=== PATIENT | male | born 1960 | race Caucasian/White ===

== ENCOUNTER 2019-07-08 12:57 | Emergency (ER) | payer MEDICAID ==
[2019-07-08 13:50] LABS: BASOPHILS % (AUTO) 0.3 %; EOSINOPHILS # (AUTO) 0.1 10^3/uL (0.0-0.7); EOSINOPHILS % (AUTO) 0.8 %; HGB - HEMOGLOBIN 16.8 g/dL (14.0-18.0); LYMPHOCYTES # (AUTO) 0.7 10^3/uL (1.5-3.5); LYMPHOCYTES % (AUTO) 11.3 %; MEAN CORPUSCULAR HEMOGLOBIN 32.5 pg (27.0-31.0); MEAN CORPUSCULAR HGB CONC 34.1 g/dL (32.0-36.0); MEAN CORPUSCULAR VOLUME 95.4 fL (80.0-94.0); MEAN PLATELET VOLUME 10.2 fL (7.4-11.4); MONOCYTES # (AUTO) 0.7 10^3/uL (0.0-1.0); MONOCYTES % (AUTO) 11.3 %; NEUTROPHILS # (AUTO) 4.8 10^3/uL (1.5-6.6); NEUTROPHILS % (AUTO) 75.8 %; PLT - PLATELET COUNT 179 10^3/uL (130-450); RED BLOOD COUNT 5.17 10^6/uL (4.70-6.10); RED CELL DISTRIBUTION WIDTH 12.9 % (12.0-15.0); WHITE BLOOD COUNT 6.4 x10^3/uL (4.8-10.8)
[2019-07-08] MEDS ORDERED: SODIUM CHLORIDE 0.9% 1,000 ML IV ONE ×3 (13:59→14:08)
[2019-07-08 14:07] LABS: ALBUMIN/GLOBULIN RATIO 1.1 (1.0-2.2); BILIRUBIN,TOTAL 2.7 mg/dL (0.2-1.0); CALCIUM 9.4 mg/dL (8.5-10.3); CREATININE 0.7 mg/dL (0.6-1.2); TOTAL PROTEIN 7.6 g/dL (6.7-8.2)
[2019-07-08] MEDS ORDERED: ONDANSETRON 4 MG/2 ML VIAL IVP STA (14:08)
[2019-07-08] MEDS ORDERED: KETOROLAC 30 MG/ML VIAL IVP STA (14:08)
--- NOTE | 2019-07-08 14:16 | ED Physician Documentation ---
History of Present Illness - Stated complaint Stated Complaint: ABD PX - Chief complaint Chief Complaint: Abd Pain - History obtained from History obtained from: Patient, Family - History of Present Illness Timing: How many days ago (2-3) Pain level max: 0 Pain level now: 0 - Additonal information Additional information: 59-year-old male states that for the past 2 to 3 days he has "not felt well". He states that his abdomen has been hurting. No nausea or vomiting. noticed that his urine has been dark. He feels lightheaded with standing. States he uses marijuana occasionally. Drinks 5-6 beers per day. Quit smoking a few months ago. No fevers. No diarrhea or constipation. Nothing makes it better or worse. Review of Systems Ten Systems: 10 systems reviewed and negative Constitutional: denies: Fever, Chills Respiratory: denies: Cough GI: denies: Nausea, Vomiting, Diarrhea : denies: Dysuria, Frequency, Hesitancy Skin: denies: Rash Musculoskeletal: denies: Neck pain, Back pain Neurologic: denies: Headache PD PAST MEDICAL HISTORY - Past Medical History Cardiovascular: None Respiratory: None Endocrine/Autoimmune: None GI: Other : None HEENT: None Psych: Anxiety, Panic attacks Musculoskeletal: Other Derm: Psoriasis - Past Surgical History Past Surgical History: Yes General: Other HEENT: Tonsil/Adenoidectomy, Other - Present Medications Home Medications: Ambulatory Orders Medication Instructions Recorded Confirmed HYDROcod/ACETAM 5/325 [Vicodin 1 - 2 ea PO Q6H PRN #15 tablet 10/19/13 10/19/15 5/325] Ibuprofen [Motrin] 600 mg ORAL DAILY PRN 10/19/13 10/19/15 diazePAM [Valium] 5 mg PO TID PRN #20 tablet 10/19/13 10/19/15 Cyclobenzaprine [Flexeril] 10 mg PO DAILY PRN 10/02/15 10/19/15 Aspirin 3 PRN 10/19/15 10/19/15 - Allergies Allergies/Adverse Reactions: Allergies Allergy/AdvReac Type Severity Reaction Status Date / Time venom-honey bee Allergy Edema Verified 10/19/15 08:11 [bee venom (honey bee)] codeine AdvReac Severe stomach Verified 10/19/13 17:03 ache - Social History Does the pt smoke?: Yes Smoking Status: Current every day smoker Does the pt drink ETOH?: Yes Does the pt have substance abuse?: No - Immunizations Immunizations are current?: No Immunizations: TDAP >10years/unknown, Other immun not current PD ED PE NORMAL - Vitals Vital signs reviewed: Yes - General General: Alert and oriented X 3, No acute distress, Well developed/nourished - HEENT HEENT: PERRL, Other (dry lips) - Neck Neck: Supple, no meningeal sign - Cardiac Cardiac: RRR, Strong equal pulses - Respiratory Respiratory: No respiratory distress, Clear bilaterally - Abdomen Abdomen: Soft, Non distended, Other (mild RUQ TTP) - Derm Derm: Warm and dry, No rash - Extremities Extremities: No edema - Neuro Neuro: Alert and oriented X 3 - Psych Psych: Normal mood, Normal affect Results - Vitals Vitals: Vital Signs - 24 hr 07/08/19 07/08/19 07/08/19 13:06 16:03 16:17 Temperature 37.0 C Heart Rate 117 H 93 96 Respiratory 18 18 18 Rate Blood Pressure 119/87 H 121/87 H 126/85 H O2 Saturation 99 97 98 07/08/19 07/08/19 19:18 21:15 Temperature Heart Rate 99 94 Respiratory 16 16 Rate Blood Pressure 154/94 H 127/92 H O2 Saturation 96 96 Oxygen O2 Source Room air - Labs Labs: Laboratory Tests 07/08/19 07/08/19 07/08/19 13:25 13:36 13:36 WBC 6.4 RBC 5.17 Hgb 16.8 Hct 49.3 MCV 95.4 H MCH 32.5 H MCHC 34.1 RDW 12.9 Plt Count 179 MPV 10.2 Neut # (Auto) 4.8 Lymph # (Auto) 0.7 L [place] # (Auto) 0.7 Eos # (Auto) 0.1 Baso # (Auto) 0.0 Absolute Nucleated RBC 0.00 Nucleated RBC % 0.0 Sodium 136 Potassium 3.9 Chloride 98 L Carbon Dioxide 24 Anion Gap 14.0 H BUN 20 Creatinine 0.7 Estimated GFR (MDRD) 115 Glucose 130 H Calcium 9.4 Total Bilirubin 2.7 H AST 152 H ALT 502 H Alkaline Phosphatase 114 Total Protein 7.6 Albumin 4.0 Globulin 3.6 Albumin/Globulin Ratio 1.1 Lipase 20 L Urine Color DARK YELLOW Urine Clarity CLEAR Urine pH 6.5 Ur Specific [place] 1.025 Urine Protein TRACE Urine Glucose (UA) NEGATIVE Urine Ketones >=80 H Urine Occult Blood NEGATIVE Urine Nitrite NEGATIVE Urine Bilirubin MODERATE H Urine Urobilinogen 1 (NORMAL) Ur Leukocyte Esterase NEGATIVE Ur Microscopic Review NOT INDICATED Urine Culture Comments NOT INDICATED - Rads (name of study) RUQ US Radiology: Prelim report reviewed, EMP read contemporaneously, See rad report (1. Fatty infiltrated mildly enlarged liver. 2. Small gallbladder polyp. 3. Mild common bile duct dilatation. ) MRCP Radiology: Prelim report reviewed, EMP read contemporaneously, See rad report (1. Small cholelithiasis. 2. Borderline dilated common duct measuring 7-8 mm with tapering and focal narrowing at the distal aspect. Distal common bile duct stricture not excluded. Small filling defect seen in the distal common bile duct, axial image 13 series 801, could represent a choledocholithiasis measuring 3 mm versus artifact. 3. Fatty liver. Portacaval lymphadenopathy measuring 1.4 cm, could be reactive to liver disease, but etiology not certain. 4. Otherwise, see above. ) PD MEDICAL DECISION MAKING - ED course Complexity details: reviewed results, re-evaluated patient, considered differential, d/w patient, d/w family, d/w product safety consultant ED course: 59-year-old male with what appears to be choledocholithiasis complicated by a bile duct stricture. He is well-appearing, nontoxic. Pain well controlled. Feels better with IV fluids and pain medication. GI is not available here. Ultrasound was concerning for common bile duct stone, but needed MRCP to confirm so we know if we could keep the patient here or if he needs to be transferred. Therefore the MRCP was undertaken. Discussed the case with Dr. Head, GI at [facility] who graciously accepts in transfer. Also discussed with Dr. Rodriguez, hospitalist at [facility] who accepts. COBRA forms completed. Patient transferred This document was made in part using voice recognition software. While efforts are made to proofread this document, sound alike and grammatical errors may occur. Departure - Departure Disposition: 02 Transfer Acute Care Hosp Clinical Impression: Choledocholithiasis, Transaminitis Condition: Stable
[2019-07-08 14:29] LABS: GLUCOSE, URINE (UA) NEGATIVE (NEGATIVE); KETONES,URINE (UA) >=80 mg/dL (NEGATIVE); LEUKOCYTE ESTERASE, URINE NEGATIVE (NEGATIVE); NITRITE,URINE NEGATIVE (NEGATIVE); OCCULT BLOOD,URINE NEGATIVE (NEGATIVE); PH,URINE 6.5 PH (5.0-7.5); PROTEIN,URINE TRACE mg/dL (NEGATIVE); UROBILINOGEN,URINE 1 (NORMAL) E.U./dL (NORMAL)
[2019-07-08 14:37] LABS: BILIRUBIN,URINE MODERATE (NEGATIVE); CLARITY,URINE CLEAR (CLEAR); ICTOTEST,URINE POSITIVE
--- NOTE | 2019-07-08 15:37 | Ultrasound Report ---
Reason: RUQ abd pain, nausea Procedure Date: 07/08/2019 Accession Number: [id number] / [id number] Procedure: US - Abdomen Limited CPT Code: FULL RESULT: EXAM: ABDOMEN ULTRASOUND LIMITED, RUQ EXAM DATE: 07/08/2019 03:25 PM. CLINICAL HISTORY: RUQ abd pain, nausea. COMPARISON: None. TECHNIQUE: Real-time scanning was performed with static images obtained. FINDINGS: Liver: Enlarged, echogenic, heterogeneous 19.5 cm. Main portal vein flow: Hepatopetal. Gallbladder: 4 mm polyp. No stones, wall thickening, or sonographic Friedman's sign. Biliary System: CBD measures 8 mm. Mildly dilated Right kidney 13.8 cm. Unremarkable IMPRESSION: 1. Fatty infiltrated mildly enlarged liver. 2. Small gallbladder polyp. 3. Mild common bile duct dilatation. RADIA
[2019-07-08] MEDS ORDERED: GADOBUTROL 15 MMOL/15 ML VIAL ONE (16:39)
[2019-07-08] MEDS ORDERED: LORazepam 2 MG/ML VIAL IVP STA (17:07)
[2019-07-08] MEDS ORDERED: MORPHINE 2 MG/ML CARPUJECT IVP STA (19:41)
--- NOTE | 2019-07-08 19:42 | MRI Report ---
Reason: dilated CBD, elevated LFTs Procedure Date: 07/08/2019 Accession Number: [id number] / [id number] Procedure: MRI - MRCP W/WO CPT Code: FULL RESULT: EXAM: MR ABDOMEN WITH AND WITHOUT CONTRAST EXAM DATE: 07/08/2019 06:50 PM. CLINICAL HISTORY: Dilated common bile duct, elevated LFTs. Question of stone. COMPARISON: ABDOMEN LIMITED 07/08/2019 2:44 PM. TECHNIQUE: Multiplanar breath-hold T1, T2 sequences obtained through the abdomen on an MR scanner. Images obtained before and after administration of 15 mL Gadavist intravenous contrast. FINDINGS: Liver: Mild fatty liver. Tiny probable liver cyst seen laterally in the right hepatic lobe. Gallbladder: Small gallstones. Common duct: Borderline dilated common duct measuring 7-8 mm with tapering and focal narrowing at the distal aspect. Distal common bile duct stricture not excluded. Small filling defect seen in the distal common bile duct, axial image 13 series 801, could represent a choledocholithiasis measuring 3 mm versus artifact. Portacaval lymphadenopathy measuring 1.4 cm. Pancreas: Unremarkable. Spleen: Unremarkable. Adrenals: Unremarkable. Kidneys: Multiple small bilateral renal cysts and parapelvic renal cysts. No hydronephrosis. Bowel: Unremarkable. IMPRESSION: 1. Small cholelithiasis. 2. Borderline dilated common duct measuring 7-8 mm with tapering and focal narrowing at the distal aspect. Distal common bile duct stricture not excluded. Small filling defect seen in the distal common bile duct, axial image 13 series 801, could represent a choledocholithiasis measuring 3 mm versus artifact. 3. Fatty liver. Portacaval lymphadenopathy measuring 1.4 cm, could be reactive to liver disease, but etiology not certain. 4. Otherwise, see above. RADIA
[2019-07-08 23:56] VITALS: BP 163/97
== END 2019-07-08 23:58 | disposition short-term general hospital (02) ==
LOC: ED 12:57
DX: K80.51 Calculus of bile duct without cholangitis or cholecystitis with obstruction (principal); K76.0 Fatty (change of) liver, not elsewhere classified; R74.0 Nonspecific elevation of levels of transaminase and lactic acid dehydrogenase [LDH]; Z87.891 Personal history of nicotine dependence
CPT/HCPCS: 36415; 74183; 76705; 80053; 81003; 83690; 85025; 96361; 96374; 96375; 99283; 99285; A9585; J2060; 81001; 87086

== ENCOUNTER 2021-03-12 08:00 | Outpatient (CLI) | payer MEDICAID ==
--- NOTE | 2021-03-12 13:49 | XRAY Report ---
PROCEDURE: Chest 2 View X-Ray INDICATIONS: COUGH TECHNIQUE: 2 view(s) of the chest. COMPARISON: None. FINDINGS: Surgical changes and devices: None. Lungs and pleura: No pleural effusions or pneumothorax. Increased bronchovascular markings in bilate ral hilar region are seen with mild bronchial wall thickening. No focal infiltrate. Mediastinum: Mediastinal contours are normal. Heart size is normal. Bones and chest wall: No suspicious bony abnormalities. Soft tissues appear unremarkable. IMPRESSION: Suggestion of mild reactive airway disease such as bronchitis or viral illness. No focal infiltrate. Reviewed by: Juan Velazco MD on 03/12/2021 1:48 PM PDT Approved by: Juan Velazco MD on 03/12/2021 1:48 PM PDT Station ID: [id number]
== END 2021-03-12 23:59 | disposition home or self-care (01) ==
LOC: DI.S 08:00
PROVIDERS: ATTEND Physician Assistant
DX: R05 Cough (principal)

== ENCOUNTER 2021-03-12 08:00 | Outpatient (CLI) | payer MEDICAID | END 2021-03-12 23:59 | disposition home or self-care (01) | LOC: LAB.S 08:00 | PROVIDERS: ATTEND Physician Assistant | DX: R05 Cough (principal); Z20.822 Contact with and (suspected) exposure to COVID-19 ==

== ENCOUNTER 2021-04-09 11:39 | Observation (INO) | payer MEDICAID ==
--- NOTE | 2021-04-09 12:26 | ED Physician Documentation ---
History of Present Illness - Stated complaint Stated Complaint: SOA/HEADACHE - Chief complaint Chief Complaint: Resp - Additonal information Additional information: 61-year-old male presents to the emergency department for evaluation of cough that began about 3 months ago as well as progressive shortness of air. This gentleman reports that when the cough began he did go to a local urgent care where he was told that he had wet lungs and needed to be admitted however he did not go to the hospital. He was started on a course of antibiotics. Over the last 3 months he has taken now a total of 3 courses of antibiotics the most recent one doxycycline begun on 04 April with no improvement of symptoms. He reports productive cough worse at night when flat. he feels better when he brings up phlegm. He does have some associated orthopnea. He has not been vaccinated for COVID-19 but tested negative about 1 month ago. No fevers, no weight loss or night sweats. He is a former smoker quitting about 5 months ago, but stated he only smokem "1 or 2 black or whites a day." Denies any history of COPD, asthma, coronary artery disease. He denies chest pain. No abdominal pain, vomiting, diarrhea, dysuria, leg swelling. His significant other in attendance in the room is concerned because she finds that he is increasingly short of breath with simple activities and she hears him at night and feels that he is breathing excessively fast and shallow. Review of Systems Constitutional: denies: Fever, Chills, Myalgias, Fatigue, Weight Loss, Sweats Eyes: reports: Reviewed and negative Nose: reports: Reviewed and negative Throat: reports: Reviewed and negative Cardiac: denies: Chest pain / pressure, Palpitations Respiratory: reports: Dyspnea, Cough. denies: Hemoptysis, Wheezing GI: denies: Abdominal Pain, Nausea, Vomiting, Diarrhea : denies: Dysuria, Frequency, Hesitancy Skin: reports: Reviewed and negative Musculoskeletal: reports: Reviewed and negative Neurologic: denies: Generalized weakness, Focal weakness, Numbness Psychiatric: denies: Depressed, Suicidal Endocrine: denies: Polydypsia, Polyuria PD PAST MEDICAL HISTORY - Past Medical History Cardiovascular: None Respiratory: None Endocrine/Autoimmune: None GI: Other : None HEENT: None Psych: Anxiety, Panic attacks Musculoskeletal: Other Derm: Psoriasis - Past Surgical History Past Surgical History: Yes General: Other HEENT: Tonsil/Adenoidectomy, Other - Present Medications Home Medications: Ambulatory Orders Medication Instructions Recorded Confirmed diazePAM [Valium] 5 mg PO TID PRN #20 tablet 10/19/13 04/09/21 - Allergies Allergies/Adverse Reactions: Allergies Allergy/AdvReac Type Severity Reaction Status Date / Time venom-honey bee Allergy Edema Verified 04/09/21 12:09 [bee venom (honey bee)] codeine AdvReac Severe stomach Verified 04/09/21 12:09 ache - Social History Does the pt smoke?: Yes Smoking Status: Current every day smoker Does the pt drink ETOH?: Yes Does the pt have substance abuse?: No - Immunizations Immunizations are current?: No Immunizations: TDAP >10years/unknown, Other immun not current PD ED PE EXPANDED - General General: Alert, No acute distress - Neck Neck: Supple w/out meningeal sx. No: Adenopathy - Cardiac Cardiac: Regular Rate, Radial strong equal, Cap refill < 2 sec. No: Murmur Present - Respiratory Respiratory: Clear to ausultation nancy, Other (mild tachypnea and shallow respiration; sat 88% room air. RR 24). No: Labored - Abdomen Abdomen: Normal Bowel sounds. No: Tender to palpation - Derm Derm: Normal color, Warm and dry. No: Rash - Extremities Extremities: Normal. No: Deformity, Tenderness, Pedal edema bilateral - Neuro Neuro: Alert and Oriented X 3, CNII-XII intact. No: Confused, Disoriented - GCS Eye Opening: Spontaneous Motor: Obeys Commands Verbal: Oriented Total: 15 Results - Vitals Vitals: Vital Signs - 24 hr 04/09/21 11:58 Temperature 36.9 C Heart Rate 82 Respiratory 18 Rate Blood Pressure 163/107 H O2 Saturation 90 L Oxygen O2 Source Room air Oxygen Flow Rate 2 - EKG (time done) 1223 Rate: Rate (enter#) (72) Rhythm: NSR [place]: Normal Intervals: Normal NC QRS: Normal Ischemia: Normal ST segments Compare to prior EKG: Old EKG unavailable Computer interpretation: Agree with computer - Labs Labs: Laboratory Tests 04/09/21 04/09/21 04/09/21 12:24 12:24 12:38 WBC 8.2 RBC 5.63 Hgb 17.3 Hct 53.1 H MCV 94.3 H MCH 30.7 MCHC 32.6 RDW 13.1 Plt Count 194 MPV 10.2 Neut # (Auto) 5.5 Lymph # (Auto) 1.3 L [place] # (Auto) 1.0 Eos # (Auto) 0.4 Baso # (Auto) 0.1 Absolute Nucleated RBC 0.00 Nucleated RBC % 0.0 Sodium Potassium Chloride Carbon Dioxide Anion Gap BUN Creatinine Estimated GFR (MDRD) Glucose Calcium Total Bilirubin AST ALT Alkaline Phosphatase Troponin I High Sens B-Natriuretic Peptide Total Protein Albumin Globulin Albumin/Globulin Ratio Lipase Urine Color YELLOW Urine Clarity CLEAR Urine pH 6.5 Ur Specific [place] 1.015 Urine Protein NEGATIVE Urine Glucose (UA) NEGATIVE Urine Ketones 15 H Urine Occult Blood NEGATIVE Urine Nitrite NEGATIVE Urine Bilirubin NEGATIVE Urine Urobilinogen 0.2 (NORMAL) Ur Leukocyte Esterase NEGATIVE Ur Microscopic Review NOT INDICATED Nasal Adenovirus (PCR) NOT DETECTED Nasal B. parapertussis DNA (PCR) NOT DETECTED Nasal Coronavir 229E PCR NOT DETECTED Nasal Coronavir HKU1 PCR NOT DETECTED Nasal Coronavir NL63 PCR NOT DETECTED Nasal Coronavir OC43 PCR NOT DETECTED Nasal Enterovir/Rhinovir PCR NOT DETECTED Nasal Influenza B PCR NOT DETECTED Nasal Influenza A PCR NOT DETECTED Nasal Parainfluen 1 PCR NOT DETECTED Nasal Parainfluen 2 PCR NOT DETECTED Nasal Parainfluen 3 PCR NOT DETECTED Nasal Parainfluen 4 PCR NOT DETECTED Nasal RSV (PCR) NOT DETECTED Nasal B.pertussis DNA PCR NOT DETECTED Nasal C.pneumoniae (PCR) NOT DETECTED David Human Metapneumo PCR NOT DETECTED Nasal M.pneumoniae (PCR) NOT DETECTED Nasal SARS-CoV-2 (PCR) NOT DETECTED 04/09/21 04/09/21 04/09/21 12:38 12:38 12:38 WBC RBC Hgb Hct MCV MCH MCHC RDW Plt Count MPV Neut # (Auto) Lymph # (Auto) [place] # (Auto) Eos # (Auto) Baso # (Auto) Absolute Nucleated RBC Nucleated RBC % Sodium 139 Potassium 4.5 Chloride 98 L Carbon Dioxide 32 Anion Gap 9.0 BUN 8 Creatinine 0.7 Estimated GFR (MDRD) 115 Glucose 135 H Calcium 9.5 Total Bilirubin 0.8 AST 23 ALT 24 Alkaline Phosphatase 61 Troponin I High Sens 4.7 B-Natriuretic Peptide 61 Total Protein 7.8 Albumin 4.4 Globulin 3.4 Albumin/Globulin Ratio 1.3 Lipase 28 Urine Color Urine Clarity Urine pH Ur Specific [place] Urine Protein Urine Glucose (UA) Urine Ketones Urine Occult Blood Urine Nitrite Urine Bilirubin Urine Urobilinogen Ur Leukocyte Esterase Ur Microscopic Review Nasal Adenovirus (PCR) Nasal B. parapertussis DNA (PCR) Nasal Coronavir 229E PCR Nasal Coronavir HKU1 PCR Nasal Coronavir NL63 PCR Nasal Coronavir OC43 PCR Nasal Enterovir/Rhinovir PCR Nasal Influenza B PCR Nasal Influenza A PCR Nasal Parainfluen 1 PCR Nasal Parainfluen 2 PCR Nasal Parainfluen 3 PCR Nasal Parainfluen 4 PCR Nasal RSV (PCR) Nasal B.pertussis DNA PCR Nasal C.pneumoniae (PCR) David Human Metapneumo PCR Nasal M.pneumoniae (PCR) Nasal SARS-CoV-2 (PCR) - Rads (name of study) CXR Radiology: Final report received (no acute cardiopulmonary process) PD MEDICAL DECISION MAKING - ED course Complexity details: reviewed results, re-evaluated patient, d/w patient, d/w family ED course: 61-year-old male presents emergency department for evaluation of 3 months productive cough with increasing shortness of air. On presentation to the ER he is noted to be mildly hypoxic with saturations of 87 to 90% on room air. This improved to 9394% when placed on 2 L nasal cannula. He has been on 3 different courses of antibiotics most recently doxycycline which was started on the eighth. He is a former smoker quit 5 months ago. Chest x-ray does not reveal pneumonia pleural effusion. His cardiopulmonary exam was fairly unrevealing despite the hypoxia. Screening EKG is nonischemic. His labs do show fairly elevated hematocrit which I suspect is related to the chronic smoking but his troponin and BNP are negative. Clinically he does not present in congestive heart failure. I have low suspicion for a PE given duration of symptoms for 3 months. I have spoken with Dr. Wilson our daytime hospitalist. We will bring this patient in for an observation admit for further treatment of bronchitis and hypoxia. Further testing to be dictated by the admitting team but may include walking saturations, echocardiogram or CT of the chest. I discussed the plan with the patient and his and they are in agreement. Departure - Departure Disposition: ED Place in Observation Clinical Impression: Hypoxia, Bronchitis
[2021-04-09 12:47] LABS: BASOPHILS # (AUTO) 0.1 10^3/uL (0.0-0.1); BASOPHILS % (AUTO) 0.7 %; EOSINOPHILS # (AUTO) 0.4 10^3/uL (0.0-0.7); EOSINOPHILS % (AUTO) 4.5 %; HCT - HEMATOCRIT 53.1 % (42.0-52.0); HGB - HEMOGLOBIN 17.3 g/dL (14.0-18.0); LYMPHOCYTES # (AUTO) 1.3 10^3/uL (1.5-3.5); LYMPHOCYTES % (AUTO) 15.8 %; MEAN CORPUSCULAR HEMOGLOBIN 30.7 pg (27.0-31.0); MEAN CORPUSCULAR HGB CONC 32.6 g/dL (32.0-36.0); MEAN CORPUSCULAR VOLUME 94.3 fL (80.0-94.0); MEAN PLATELET VOLUME 10.2 fL (7.4-11.4); MONOCYTES % (AUTO) 11.7 %; NEUTROPHILS # (AUTO) 5.5 10^3/uL (1.5-6.6); NEUTROPHILS % (AUTO) 67.1 %; PLT - PLATELET COUNT 194 10^3/uL (130-450); RED BLOOD COUNT 5.63 10^6/uL (4.70-6.10); RED CELL DISTRIBUTION WIDTH 13.1 % (12.0-15.0); WHITE BLOOD COUNT 8.2 x10^3/uL (4.8-10.8)
[2021-04-09 12:50] LABS: BILIRUBIN,URINE NEGATIVE (NEGATIVE); GLUCOSE, URINE (UA) NEGATIVE (NEGATIVE); KETONES,URINE (UA) 15 mg/dL (NEGATIVE); LEUKOCYTE ESTERASE, URINE NEGATIVE (NEGATIVE); NITRITE,URINE NEGATIVE (NEGATIVE); OCCULT BLOOD,URINE NEGATIVE (NEGATIVE); PH,URINE 6.5 PH (5.0-7.5); PROTEIN,URINE NEGATIVE (NEGATIVE); UROBILINOGEN,URINE 0.2 (NORMAL) E.U./dL (NORMAL)
--- NOTE | 2021-04-09 12:51 | XRAY Report ---
PROCEDURE: Chest 1 View X-Ray INDICATIONS: Chest Pain TECHNIQUE: One view of the chest was acquired. COMPARISON: 03/12/2021 FINDINGS: Surgical changes and devices: None. Lungs and pleura: No pleural effusions or pneumothorax. Lungs are clear. Mediastinum: Mediastinal contours appear normal. Heart size is normal. Bones and chest wall: No suspicious bony lesions. Overlying soft tissues appear unremarkable. IMPRESSION: No acute cardiopulmonary process. Reviewed by: Juan Velazco MD on 04/09/2021 12:50 PM PDT Approved by: Juan Velazco MD on 04/09/2021 12:50 PM PDT Station ID: [id number]
[2021-04-09 12:52] LABS: CLARITY,URINE CLEAR (CLEAR)
[2021-04-09 13:10] LABS: ALBUMIN 4.4 g/dL (3.2-5.5); ALBUMIN/GLOBULIN RATIO 1.3 (1.0-2.2); BILIRUBIN,TOTAL 0.8 mg/dL (0.2-1.0); CALCIUM 9.5 mg/dL (8.5-10.3); CREATININE 0.7 mg/dL (0.6-1.2); POTASSIUM 4.5 mmol/L (3.5-5.0); TOTAL PROTEIN 7.8 g/dL (6.7-8.2)
[2021-04-09 13:36] LABS: B. PARAPERTUSSIS- RESP PCR PAN NOT DETECTED; B. PERTUSSIS- RESP PCR PANEL NOT DETECTED; C. PNEUMONIAE- RESP PCR PANEL NOT DETECTED; CORONAVIRUS 229E-RESP PCR NOT DETECTED; CORONAVIRUS HKU1-RESP PCR NOT DETECTED; CORONAVIRUS NL63-RESP PCR NOT DETECTED; CORONAVIRUS OC43-RESP PCR NOT DETECTED; HUMAN METAPNEUMOVIRUS NOT DETECTED; INFLUENZA A- RESP PCR PANEL NOT DETECTED; INFLUENZA B - RESP PCR PANEL NOT DETECTED; M. PNEUMONIAE- RESP PCR PANEL NOT DETECTED; PARAINFLUENZA VIRUS 1 NOT DETECTED; PARAINFLUENZA VIRUS 2 NOT DETECTED; PARAINFLUENZA VIRUS 3 NOT DETECTED; PARAINFLUENZA VIRUS 4 NOT DETECTED; RHINOVIRUS/ENTEROVIRUS NOT DETECTED; RSV- RESP PCR PANEL NOT DETECTED; SARS-CoV-2 -RESP PCR PANEL NOT DETECTED
[2021-04-09] MEDS ORDERED: SODIUM CHLORIDE FLUSH 0.9% 10 ML SYRINGE IVP PRN (13:47)
--- NOTE | 2021-04-09 13:53 | HISTORY & PHYSICAL EXAMINATION ---
Chief Complaint - Chief Complaint Chief Complaint: SOB, cough History of Present Illness - Admitted From Admitted From:: ED - History Obtained From History obtained from: ED provider and the patient - History of Present Illness HPI Comment/Other: This is a 61-year-old white male with an essentially negative past medical history. He quit smoking cigars 5 months ago. The patient has had a "cough for 3 months". He went to the [facility], described achiness and a cough with green sputum, a CXR was done that he reports, showed bilateral pneumonia. He was prescribed a course of antibiotics for 7 days (he cannot remember the antibiotic name) plus several days of steroids and he felt better after a week, but 2 days later he again developed cough with green sputum production and at this time, because of changed health insurance, he was seen by a different doct or at [facility] in [facility]. He was put on Zithromax and again steroids and again felt better after a week, but a few days later the same symptoms recurred and he called the [place] office and was prescribed a third course of antibiotics without steroids; he is currently on his 4th day of doxycycline. Patient came to the ER today with worsening shortness of breath, "unable to catch his breath and take a deep breath", and this annoying persistent cough with green sputum. He takes an inhaler, "1 puff every 3 hours", and does not know the name. He has never seen a Textiles Sales Representative. His work-up in the ER showed an 88% oxygen saturation on room air and he was tachypneic. The chest x-ray showed resolution of any "walking pneumonia". The patient is being placed in Observation status to start treatment for probable chronic bronchitis, possible COPD, and for additional testing to rule out causes for hypoxemia. History - Past Medical History Cardiovascular: reports: None Respiratory: reports: None Endocrine/Autoimmune: reports: None GI: reports: Other : reports: None HEENT: reports: None Psych: reports: Anxiety, Panic attacks Musculoskeletal: reports: Other Derm: reports: Psoriasis MRSA Hx?: No - Past Surgical History General: reports: Other HEENT: reports: Tonsil/Adenoidectomy, Other - Family & Social History Family History: Other family: Alive and Well (3 daughters, 1 is heroine addict & homeless) Living arrangement: At home Living Situation: With spouse/s.o. 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 He was a 2 cigar a day smoker and quit 5 months ago. He drinks alcohol socially. - Substance History Use: Uses substance without health or social issues: NONE - POLST Patient has POLST: No POLST Status: Full Code Meds/Allgy - Home Medications Home Medications: Ambulatory Orders Medication Instructions Recorded Confirmed diazePAM [Valium] 5 mg PO TID PRN #20 tablet 10/19/13 04/09/21 Albuterol Sulf [Ventolin Hfa 2 puffs INH Q6HR PRN 04/09/21 04/09/21 Inhaler] Doxycycline Hyclate [Vibramycin] 100 mg PO BID 04/09/21 04/09/21 - Allergies Allergies/Adverse Reactions: Allergies Allergy/AdvReac Type Severity Reaction Status Date / Time venom-honey bee Allergy Edema Verified 04/09/21 12:09 [bee venom (honey bee)] codeine AdvReac Severe stomach Verified 04/09/21 12:09 ache Review of Systems - Respiratory Respiratory: reports: Cough, Sputum production, Wheezing - All Other Systems All Other Systems: reports: Reviewed and negative Exam - Vital Signs Reviewed Vital Signs: Yes Vital Signs: Vital Signs x48h Temp Pulse Resp BP Pulse Ox 04/09/21 11:58 36.9 C 82 18 163/107 H 90 L - Physical Exam General Appearance: positive: No acute distress, Alert Eyes Bilateral: positive: Normal inspection, EOMI ENT: positive: ENT inspection nml Neck: positive: Nml inspection, Thyroid nml, No JVD Respiratory: positive: No respiratory distress (wearing O2 n.c.), Other (Dim inished breath sounds diffusely, scattered wheezes in the upper lung santos, no rales.) Abdomen: positive: Non-tender, Nml bowel sounds, No distention Skin: positive: Warm, Dry Neurologic/Psychiatric: positive: Oriented x3 (Non-focal) Conclusion/Plan - Problem List (1) Hypoxia Conclusion/Plan: Continue supplemental oxygen and treating the underlying pulmonary pathology (see below). Will try to wean down to room air and then will perform oxygen oximetry walk test before discharge. (2) Bronchitis Conclusion/Plan: This patient reports chronic green sputum production, only made intermittently better when he was on courses of steroids or antibiotics. We will treat for continued bronchitis to help sputum expectoration. We will order Mucinex for expectoration. We will order respiratory sputum culture. We do not know the first antibiotic he took, he completed an adequate course of Zithromax, therefore we will add iv cefepime to po doxycycline. (3) CAP (community acquired pneumonia) Conclusion/Plan: Angiogram of this the chest was done as he was being placed in Observation, to rule out PE, and it showed no PE. The report does find consolidation and groundglass opacity on both sides. This could be an atypical pneumonia, community-acquired or findings of pulmonary fibrosis plus the tail end of the outpatient pneumonia that he has had treatment with antibiotics for. He has therefore failed outpt antibiotic treatment. However, he has no fever or elevated WBC. We will continue continue with his p.o. doxycycline and also add IV cefepime. Will add Mucinex for expectoration and also start inhalers and Singulair for his probable COPD. (4) Heart murmur Conclusion/Plan: Patient states he has known about his heart murmur since childhood and was told he would "outgrow it". The murmur is (still) audible and sounds like mitral or tricuspid regurgitation. We will obtain an Echo to determine if the murmur has perhaps created CHF, which may also be adding to his dyspnea and hypoxia. Will check if he has pulm HTN or Cor pulmonale. Will request this Echo to be done with a bubble study to evaluate for an intracardiac shunt, which could also explain hypoxia. (5) Ex-smoker for less than 1 year Conclusion/Plan: He has scattered wheezing and a prolonged expiratory phase as well as poor air movement in all lung santos, and was a smoker (of Vortal) for all his life unt il 5 mos ago. Will begin DuoNebs 4 times daily scheduled and every 4 hours prn. We will begin Pulmicort scheduled twice daily. We will begin oral Singulair at at bedtime. He will be discharged with a maintenance and rescue inhaler and also steroid inhaler. He needs RT education on proper use of inhalers. (6) Anxiety Conclusion/Plan: We will continue his Valium 5 mg 3 times daily as needed for anxiety, while he is here - Lab Results Fish Bones: 04/09/21 12:38 04/09/21 12:38
[2021-04-09] MEDS ORDERED: IOVERSOL 320 100 ML VIAL IVP ONE ×2 (14:17→20:11)
[2021-04-09] MEDS ORDERED: ALBUTEROL NEB 2.5 MG/3 ML INH PRN (15:57)
--- NOTE | 2021-04-09 16:32 | CT Report ---
PROCEDURE: ANGIO CHEST W/WO INDICATIONS: Hypoxia, tachypnea CONTRAST: IV CONTRAST: Optiray 320 ml: 80 PO CONTRAST: *NO PO CONTRAST TECHNIQUE: After the administration of intravenous contrast, images were acquired from the pulmonary apices to t he posterior costophrenic angles. 3-dimensional maximum intensity projection (MIP) coronal and sagit narinder reformats were then acquired through the thorax. For radiation dose reduction, the following was used: automated exposure control, adjustment of mA and/or kV according to patient size. COMPARISON: Same-day chest radiograph; 03/13/2021 chest radiograph FINDINGS: Image quality: Excellent. Pulmonary arteries: Pulmonary arteries are normal in size, and demonstrate no intraluminal filling d efects to suggest central pulmonary embolism. Lungs and pleura:, Patchy bilateral groundglass and small consolidative nodular opacities. No pleural effusions or pneum othorax. Central and peripheral airways are patent. Mediastinum: Heart size is normal, without pericardial effusion. Shotty mediastinal and hilar lympha denopathy. Thoracic aorta is normal in caliber and enhancement. Esophagus is normal in caliber, with out hiatal hernia. Bones and chest wall: No suspicious bony lesions. Ribs and thoracic spine appear intact throughout. No axillary or supraclavicular adenopathy. The thyroid is normal in size and there are no incident al findings. Abdomen: Visualized upper abdominal solid organs appear normal in the early arterial phase of enhanc ement. IMPRESSION: Bilateral airspace opacities which are both groundglass and small consolidative reticulonodular opaci ties. Findings are most likely infectious or inflammatory. Follow-up to resolution recommended. No evidence of pulmonary embolism. Shotty lymphadenopathy in the mediastinal and hilar stations may be reactive given the suspected infe ctious or inflammatory process. This is not entirely definitive, however, and neoplasm could cause a similar appearance and this will need follow-up to document stability or resolution. CLINICAL RECOMMENDATION STATEMENTS: In patients <35 years with an ITN detected on CT, MRI, or extrathyroidal ultrasound, the Committee re commends further evaluation with dedicated thyroid ultrasound if the nodule is ?1 cm and has no suspi cious imaging features, and if the patient has normal life expectancy. In patients ?35 years with an ITN detected on CT, MRI, or extrathyroidal ultrasound, the Committee re commends further evaluation with dedicated thyroid ultrasound if the nodule is ?1.5 cm and has no bernard picious imaging features, and if the patient has normal life expectancy. (ACR, 2014) Reviewed by: Theo Alejandra MD on 04/09/2021 4:31 PM PDT Approved by: Theo Alejandra MD on 04/09/2021 4:31 PM PDT Station ID: [id number]
[2021-04-09] MEDS: SODIUM CHLORIDE FLUSH 0.9% 10 ML SYRINGE IVP SCH (18:23)
[2021-04-09] MEDS: CEFEPIME 2 GM in SODIUM CHLORIDE 0.9% MINIBAG 100 ML IV SCH (18:23)
[2021-04-09] MEDS ORDERED: IPRATROPIUM/ALBUTEROL 3 ML NEB INH PRN (18:26)
[2021-04-09] MEDS: ACETAMINOPHEN 325 MG TABLET PO PRN (18:31)
[2021-04-09] MEDS: CARBOXYMETHYLCELLULOSE OPHTH DROPS EACHEYE PRN (21:19)
[2021-04-09] MEDS: DOXYCYCLINE 100 MG TABLET PO SCH (21:20)
[2021-04-09] MEDS: MONTELUKAST 10 MG TABLET PO SCH (21:20)
[2021-04-09] MEDS: guaiFENesin 600 MG TABLET PO SCH (21:20)
[2021-04-09] MEDS: BUDESONIDE 0.5 MG/2 ML NEB INH SCH (21:42)
[2021-04-09] MEDS: IPRATROPIUM/ALBUTEROL 3 ML NEB INH SCH (21:42)
[2021-04-09] MEDS: diazePAM 5 MG TABLET PO PRN (22:53)
[2021-04-10] MEDS: SODIUM CHLORIDE FLUSH 0.9% 10 ML SYRINGE IVP SCH ×3 (00:02→17:31)
[2021-04-10] MEDS: ACETAMINOPHEN 325 MG TABLET PO PRN ×4 (00:02→21:45)
[2021-04-10] MEDS: CEFEPIME 2 GM in SODIUM CHLORIDE 0.9% MINIBAG 100 ML IV SCH ×2 (05:30→17:30)
[2021-04-10] MEDS: BUDESONIDE 0.5 MG/2 ML NEB INH SCH ×2 (07:26→21:04)
[2021-04-10] MEDS: IPRATROPIUM/ALBUTEROL 3 ML NEB INH SCH ×4 (07:26→21:06)
[2021-04-10] MEDS: guaiFENesin 600 MG TABLET PO SCH ×2 (08:38→21:45)
[2021-04-10] MEDS: DOXYCYCLINE 100 MG TABLET PO SCH ×2 (08:38→21:45)
[2021-04-10] MEDS ORDERED: BENZOCAINE/MENTHOL LOZENGE MM PRN (11:33)
[2021-04-10] MEDS: diazePAM 5 MG TABLET PO PRN ×3 (11:38→22:51)
[2021-04-10] MEDS: CARBOXYMETHYLCELLULOSE OPHTH DROPS EACHEYE PRN ×3 (12:52→22:51)
--- NOTE | 2021-04-10 18:09 | PROVIDER PROGRESS NOTE ---
Assessment/Plan - Problem List (1) Hypoxia Assessment/Plan: Off oxygen, he underwent oximetry study. At rest he desaturated to 83% on room air, this improved to 88% on 2 L nasal cannula. He then walked on 2 L and this decreased to 86%. Sats improved to 88% on 3 L with activity. Patient is not ready for discharge because of persistent oxygen desaturations. The patient is amenable to a new home oxygen order which will be ordered at discharge (2) Bronchitis with wheezing Assessment/Plan: Expectoration has improved by being on scheduled Mucinex twice daily and treating the underlying persistent pneumonia. Wheezing has improved by starting scheduled nebulizer treatments and as needed additional nebulizer treatments, p.o. Singulair and inhaled corticosteroids. Will continue these. (3) CAP (community acquired pneumonia) Assessment/Plan: Today audible rales are heard at both bases now that no further wheezing and bet ter air movement have been achieved. The chest x-ray at admission had showed no infiltrates but the CT scan did show bilateral groundglass changes plus small bilateral infiltrates. Await sputum culture result which showed high white blood cells and many gram- positive cocci Continue with empiric IV cefepime. Continue p.o. doxycycline. (4) Heart murmur Assessment/Plan: He underwent an echo today which shows mild aortic stenosis. Normal LV and RV function were seen. The information was given to the patient.delivered to the patient. (5) Anxiety Assessment/Plan: His parent Valium has been ordered to use while here. - Current Meds Current Meds: Current Medications Generic Name Dose Route Start Last Admin Trade Name Freq PRN Reason Stop Dose Admin Acetaminophen 650 mg 04/09/21 13:47 04/10/21 17:30 Acetaminophen 325 Mg Tablet PO 650 mg Q4HR PRN Administration Pain 1 to 4 Albuterol/Ipratropium 3 ml 04/09/21 19:00 04/10/21 15:16 Ipratropium/Albuterol 3 Ml Neb INH 3 ml RTQID DARRON Administration Budesonide 0.5 mg 04/09/21 19:00 04/10/21 07:26 Budesonide 0.5 Mg/2 Ml Neb INH 0.5 mg RTBID DARRON Administration Carboxymethylcellulose 1 drops 04/09/21 14:48 04/10/21 12:52 Carboxymethylcellulose Ophth Drops EACHEYE 1 drops PRN PRN Administration Dry Eye Diazepam 5 mg 04/09/21 13:51 04/10/21 17:30 Diazepam 5 Mg Tablet PO 5 mg TID PRN Administration Spasms Doxycycline Hyclate 100 mg 04/09/21 21:00 04/10/21 08:38 Doxycycline 100 Mg Tablet PO 100 mg BID DARRON Administration Guaifenesin 600 mg 04/09/21 21:00 04/10/21 08:38 Guaifenesin 600 Mg Tablet PO 600 mg BID DARRON Administration Cefepime HCl 2 gm/ Sodium 100 mls @ 200 mls/hr 04/09/21 18:00 04/10/21 18:05 Chloride IV Infused Q12H DARRON Infusion Montelukast Sodium 10 mg 04/09/21 21:00 04/09/21 21:20 Montelukast 10 Mg Tablet PO 10 mg QPM DARRON Administration Sodium Chloride 10 ml 04/09/21 13:47 04/10/21 05:30 Sodium Chloride Flush 0.9% 10 Ml Syringe IVP 10 ml PRN PRN Administration NEEDED PER PROVIDER ORDERS Sodium Chloride 10 ml 04/09/21 17:00 04/10/21 17:31 Sodium Chloride Flush 0.9% 10 Ml Syringe IVP 10 ml 0100,0900,1700 DARRON Administration Throat Lozenges 1 lozenge 04/10/21 11:33 04/10/21 11:39 Benzocaine/Menthol Lozenge MM 1 lozenge Q2HR PRN Administration Throat pain - Lab Result Fish Bone Diagrams: 04/09/21 12:38 04/09/21 12:38 - Additional Planning My Orders: My Active Orders 04/09/21 18:00 Cefepime 2 gm Sodium Chloride 0.9% Minibag [Normal Saline 0.9% Minibag] 100 ml IV Q12H 04/09/21 18:26 Nebulizer/MDI Tx. [RC] .QID Ipratropium/Albuterol [Duoneb] 3 ml INH Q4HR PRN 04/09/21 19:00 Budesonide [Pulmicort] 0.5 mg INH RTBID Ipratropium/Albuterol [Duoneb] 3 ml INH RTQID 04/09/21 19:09 CUL, RESPIRATORY [RM] Urgent 04/09/21 21:00 Doxycycline [Vibramycin] 100 mg PO BID Montelukast [Singulair] 10 mg PO QPM guaiFENesin [Mucinex] 600 mg PO BID 04/10/21 08:00 Echo Complete w/Bubble Study [ECHO] Routine 04/10/21 08:34 Oxygen Desat. Study w/Exercise [RC] .ONCE 04/10/21 11:33 Benzocaine/Menthol [Cepacol] 1 lozenge MM Q2HR PRN Subjective - Subjective Patient Reports: Feeling Better (Able to expectorate more easily, and inhale more deeply) Objective Vital Signs: Vital Signs - 24 hr 04/09/21 04/09/21 04/09/21 21:00 21:40 21:41 Temperature 36.8 C 36.6 C Heart Rate 81 82 Heart Rate [ 84 Brachial] Respiratory 18 20 20 Rate Blood Pressure 129/89 H [Right Brachial artery] O2 Saturation 90 L 92 04/10/21 04/10/21 04/10/21 00:00 05:00 07:29 Temperature 36.6 C 36.4 C L Heart Rate 84 Heart Rate [ 81 73 Brachial] Respiratory 20 18 18 Rate Blood Pressure 123/83 H 131/83 H [Right Brachial artery] O2 Saturation 92 93 04/10/21 04/10/21 04/10/21 08:03 11:33 15:17 Temperature 36.6 C 36.6 C Heart Rate 88 Heart Rate [ 83 83 Brachial] Respiratory 19 19 18 Rate Blood Pressure 124/75 126/79 [Right Brachial artery] O2 Saturation 90 L 92 04/10/21 17:00 Temperature 36.7 C Heart Rate Heart Rate [ 87 Brachial] Respiratory 18 Rate Blood Pressure 120/74 [Right Brachial artery] O2 Saturation 92 Oxygen O2 Source Nasal cannula Oxygen Flow Rate 2 I&O (Last 24 Hrs): Intake and Output Totals x24h 04/08/21 04/09/21 04/10/21 23:59 23:59 23:59 Intake Total 550 920 Balance 550 920 General: Alert, Oriented x3 HEENT: Mucous membr. moist/pink Neck: Supple, No JVD Neuro: Alert, Non Focal Cardiovascular: Regular rate, Other (syst murmur) Respiratory: No respiratory distress (on O2 per n.c.), Other (Goos air mvm, no wheezing, bilateral rales at bases.) Abdomen: Soft, No tenderness Extremities: No clubbing, No edema - Results Results: Laboratory Results WBC 8.2 x10^3/uL (4.8-10.8) 04/09/21 12:38 RBC 5.63 10^6/uL (4.70-6.10) 04/09/21 12:38 Hgb 17.3 g/dL (14.0-18.0) 04/09/21 12:38 Hct 53.1 % (42.0-52.0) H 04/09/21 12:38 MCV 94.3 fL (80.0-94.0) H 04/09/21 12:38 MCH 30.7 pg (27.0-31.0) 04/09/21 12:38 MCHC 32.6 g/dL (32.0-36.0) 04/09/21 12:38 RDW 13.1 % (12.0-15.0) 04/09/21 12:38 Plt Count 194 10^3/uL (130-450) 04/09/21 12:38 MPV 10.2 fL (7.4-11.4) 04/09/21 12:38 Neut # (Auto) 5.5 10^3/uL (1.5-6.6) 04/09/21 12:38 Lymph # (Auto) 1.3 10^3/uL (1.5-3.5) L 04/09/21 12:38 [place] # (Auto) 1.0 10^3/uL (0.0-1.0) 04/09/21 12:38 Eos # (Auto) 0.4 10^3/uL (0.0-0.7) 04/09/21 12:38 Baso # (Auto) 0.1 10^3/uL (0.0-0.1) 04/09/21 12:38 Absolute Nucleated RBC 0.00 x10^3/uL 04/09/21 12:38 Nucleated RBC % 0.0 /100WBC 04/09/21 12:38 Sodium 139 mmol/L (135-145) 04/09/21 12:38 Potassium 4.5 mmol/L (3.5-5.0) 04/09/21 12:38 Chloride 98 mmol/L (101-111) L 04/09/21 12:38 Carbon Dioxide 32 mmol/L (21-32) 04/09/21 12:38 Anion Gap 9.0 (6-13) 04/09/21 12:38 BUN 8 mg/dL (6-20) 04/09/21 12:38 Creatinine 0.7 mg/dL (0.6-1.2) 04/09/21 12:38 Estimated GFR (MDRD) 115 (>89) 04/09/21 12:38 Glucose 135 mg/dL (70-100) H 04/09/21 12:38 Calcium 9.5 mg/dL (8.5-10.3) 04/09/21 12:38 Total Bilirubin 0.8 mg/dL (0.2-1.0) 04/09/21 12:38 AST 23 IU/L (10-42) 04/09/21 12:38 ALT 24 IU/L (10-60) 04/09/21 12:38 Alkaline Phosphatase 61 IU/L (42-121) 04/09/21 12:38 Troponin I High Sens 4.7 ng/L (2.3-19.7) 04/09/21 12:38 B-Natriuretic Peptide 61 pg/mL (5-100) 04/09/21 12:38 Total Protein 7.8 g/dL (6.7-8.2) 04/09/21 12:38 Albumin 4.4 g/dL (3.2-5.5) 04/09/21 12:38 Globulin 3.4 g/dL (2.1-4.2) 04/09/21 12:38 Albumin/Globulin Ratio 1.3 (1.0-2.2) 04/09/21 12:38 Lipase 28 U/L (22-51) 04/09/21 12:38 Urine Color YELLOW 04/09/21 12:24 Urine Clarity CLEAR (CLEAR) 04/09/21 12:24 Urine pH 6.5 PH (5.0-7.5) 04/09/21 12:24 Ur Specific [place] 1.015 (1.002-1.030) 04/09/21 12:24 Urine Protein NEGATIVE mg/dL (NEGATIVE) 04/09/21 12:24 Urine Glucose (UA) NEGATIVE mg/dL (NEGATIVE) 04/09/21 12:24 Urine Ketones 15 mg/dL (NEGATIVE) H 04/09/21 12:24 Urine Occult Blood NEGATIVE (NEGATIVE) 04/09/21 12:24 Urine Nitrite NEGATIVE (NEGATIVE) 04/09/21 12:24 Urine Bilirubin NEGATIVE (NEGATIVE) 04/09/21 12:24 Urine Urobilinogen 0.2 (NORMAL) E.U./dL (NORMAL) 04/09/21 12:24 Ur Leukocyte Esterase NEGATIVE (NEGATIVE) 04/09/21 12:24 Ur Microscopic Review NOT INDICATED 04/09/21 12:24 Nasal Adenovirus (PCR) NOT DETECTED 04/09/21 12:24 Nasal B. parapertussis DNA (PCR) NOT DETECTED 04/09/21 12:24 Nasal Coronavir 229E PCR NOT DETECTED 04/09/21 12:24 Nasal Coronavir HKU1 PCR NOT DETECTED 04/09/21 12:24 Nasal Coronavir NL63 PCR NOT DETECTED 04/09/21 12:24 Nasal Coronavir OC43 PCR NOT DETECTED 04/09/21 12:24 Nasal Enterovir/Rhinovir PCR NOT DETECTED 04/09/21 12:24 Nasal Influenza B PCR NOT DETECTED 04/09/21 12:24 Nasal Influenza A PCR NOT DETECTED 04/09/21 12:24 Nasal Parainfluen 1 PCR NOT DETECTED 04/09/21 12:24 Nasal Parainfluen 2 PCR NOT DETECTED 04/09/21 12:24 Nasal Parainfluen 3 PCR NOT DETECTED 04/09/21 12:24 Nasal Parainfluen 4 PCR NOT DETECTED 04/09/21 12:24 Nasal RSV (PCR) NOT DETECTED 04/09/21 12:24 Nasal B.pertussis DNA PCR NOT DETECTED 04/09/21 12:24 Nasal C.pneumoniae (PCR) NOT DETECTED 04/09/21 12:24 David Human Metapneumo PCR NOT DETECTED 04/09/21 12:24 Nasal M.pneumoniae (PCR) NOT DETECTED 04/09/21 12:24 Nasal SARS-CoV-2 (PCR) NOT DETECTED 04/09/21 12:24 - Procedures Procedures: Procedures SUPPLEMENT ABDOMINAL WALL WITH SYNTH SUB, OPEN APPROACH (10/19/15)
[2021-04-10] MEDS: MONTELUKAST 10 MG TABLET PO SCH (21:45)
[2021-04-11] MEDS: SODIUM CHLORIDE FLUSH 0.9% 10 ML SYRINGE IVP SCH ×2 (00:11→09:01)
[2021-04-11] MEDS: CEFEPIME 2 GM in SODIUM CHLORIDE 0.9% MINIBAG 100 ML IV SCH (05:41)
[2021-04-11] MEDS: IPRATROPIUM/ALBUTEROL 3 ML NEB INH SCH (07:49)
[2021-04-11] MEDS: BUDESONIDE 0.5 MG/2 ML NEB INH SCH (07:51)
[2021-04-11] MEDS: ACETAMINOPHEN 325 MG TABLET PO PRN (09:00)
[2021-04-11] MEDS: DOXYCYCLINE 100 MG TABLET PO SCH (09:00)
[2021-04-11] MEDS: diazePAM 5 MG TABLET PO PRN (09:01)
[2021-04-11] MEDS: guaiFENesin 600 MG TABLET PO SCH (09:01)
--- NOTE | 2021-04-11 09:24 | Discharge Plan ---
Discharge Plan Problem Reviewed?: Yes Disposition: Home, Self Care Condition: Stable Prescriptions: Ipratropium/Albuterol [Duoneb] 3 ml INH RTQID #90 neb guaiFENesin [Guaifenesin ER] 600 mg PO BID #14 tab levoFLOXacin [Levofloxacin] 750 mg PO DAILY #3 tablet Albuterol Sulfate [Proair Hfa Inhaler] 1 - 2 puffs INH Q4H PRN #1 gm PRN Reason: Shortness Of Air/Wheezing Budesonide [Pulmicort] 0.5 mg INH RTBID #60 neb Montelukast [Singulair] 10 mg PO QPM #30 tablet diazePAM [Valium] 5 mg PO BID #10 tablet Diet: Regular Activity Restrictions: No Restrictions Shower Restrictions: No Driving Restrictions: No Instruction Topics: Bronchitis Chronic, Inhaler Use, Chronic Lung Disease Stretching Health Concerns: You were in the hospital for IV antibiotic treatment of chronic bronchitis and a persistent pneumonia and we also continued the oral antibiotic, that third course of treatment that had been recently started. We also treated you for chronic bronchitis and emphysema with new medications. You are being discharged to finish antibiotics and with new prescriptions for more aggressive treatment of chronic bronchitis and presumed emphysema. You need to have pulmonary function tests done, that should be ordered by your PCP. A new prescription for several tablets of Valium was also prescribed at your request. All prescriptions were electronically sent to your [facility] in [place]. Plan of Treatment: As above. Also, you were tested for needing oxygen and a new order for home oxygen has been set up. Care Goals: Improvement in symptoms and stabilization are the goals. Assessment: The patient understands and is agreeable with the plan. Additional Instructions or Follow Up instructions: If you have new or worsening symptoms, call your PCP for advice or come to the ER. No Smoking: If you smoke, Please STOP! Call for help. Follow-up with: NURIA MCGARRY [Primary Care Provider] -
--- NOTE | 2021-04-11 10:34 | PHARMACY PROGRESS NOTE ---
- Best Possible Medication History Admit Date and Time: 04/09/21 0055 Processed by: Pharmacy Medication History completed: Yes Patient Interview: Completed Secondary Source(s): Physician records, Pharmacy records, Insurance records As the person ultimately responsible for medication therapy, providers are able to order a medication from an existing home medication list in [facility] via the "Reconcile Routine" prior to Confirmation of that medication by technical support specialist. Such practice is discouraged except when the physician, in their clinical judgment, deems that a medical need exists for a medication without regard to previous use.
--- NOTE | 2021-04-11 11:53 | DISCHARGE SUMMARY ---
Discharge Summary Admit Date: 04/09/21 Discharge Date: 04/11/21 Discharging Provider: Dr Kacie Flaherty Condition at Discharge: Stable Discharge Disposition: 01 Home, Self Care - HPI History of Present Illness: This is a 61-year-old white male with an essentially negative past medical history. He quit smoking cigars 5 months ago. The patient has had a "cough for 3 months". He went to the [facility], described achiness and a cough with green sputum, a CXR was done that he reports, showed bilateral pneumonia. He was prescribed a course of antibiotics for 7 days (he cannot remember the antibiotic name) plus several days of steroids and he felt better after a week, but 2 days later he again developed cough with green sputum production and at this time, because of changed health insurance, he was seen by a different doctor at [facility] in [facility]. He was put on Zithromax and again steroids and again felt better after a week, but a few days later the same symptoms recurred and he called the [place] office and was prescribed a third course of antibiotics without steroids; he is currently on his 4th day of doxycycline. Patient came to the ER today with worsening shortness of breath, "unable to catch his breath and take a deep breath", and this annoying persistent cough with green sputum. He takes an inhaler, "1 puff every 3 hours", and does not know the name. He has never seen a Global Marketing Operations Manager. His work-up in the ER showed an 88% oxygen saturation on room air and he was tachypneic. The chest x-ray showed resolution of any "walking pneumonia". The patient is being placed in Observation status to start treatment for probable chronic bronchitis, possible COPD, and for additional testing to rule out causes for hypoxemia. - HOSPITAL COURSE Hospital Course: (1) Hypoxia He was started on supplemental oxygen and when weaned off oxygen, he had persistent desaturations. On the day of discharge, he underwent an oximetry walk study. At rest, he was hypoxic at 86% on room air. On 2 L/min nasal cannula at rest, his O2 sats improved to 93%. With ambulation on 2 L/min, his O2 sats were 90%. I am ordering home O2, at 2 L/min continuously to treat his COPD/chronic bronchitis and hypoxia. I am also ordering a home nebulizer machine to administer bronchodilators/inhaled steroids. (2) Bronchitis with wheezing Expectoration began by being on scheduled Mucinex twice daily and by treating the underlying pneumonia. Wheezing improved by starting scheduled and prn nebulizer treatments, p.o. Singulair and inhaled corticosteroids. He was discharged on these. (3) CAP (community acquired pneumonia) After the admission exam of being very tight with poor air movement, the next day audible rales were heard at both bases. The chest x-ray at admission had shown no infiltrates but the CT scan did show bilateral groundglass changes plus small bilateral infiltrates. A sputum sample result showed high white blood cells and many gram-positive cocci he was on empiric IV cefepime, then discharged on p.o. doxycycline. (4) Heart murmur He reported knowing about a murmur since childhood. He underwent an Echo here which showed mild aortic stenosis. Normal LV and RV function were seen. The information was given to the patient. (5) Ex-smoker (less than 1 yr) He has not smoked in 5 mos. (6) Anxiety His home Valium dose was ordered to use while here. - ALLERGIES Allergies/Adverse Reactions: Allergies Allergy/AdvReac Type Severity Reaction Status Date / Time venom-honey bee Allergy Edema Verified 04/09/21 12:09 [bee venom (honey bee)] codeine AdvReac Severe stomach Verified 04/09/21 12:09 ache - MEDICATIONS Home Medications: Ambulatory Orders Medication Instructions Recorded Confirmed Albuterol Sulf [Ventolin Hfa 2 puffs INH Q6HR PRN 04/09/21 04/09/21 Inhaler] Albuterol Sulfate [Proair Hfa 1 - 2 puffs INH Q4H PRN #1 gm 04/11/21 Inhaler] Budesonide [Pulmicort] 0.5 mg INH RTBID #60 neb 04/11/21 Doxycycline [Vibramycin] 100 mg PO BID tablet 04/11/21 Ipratropium/Albuterol [Duoneb] 3 ml INH RTQID #90 neb 04/11/21 Montelukast [Singulair] 10 mg PO QPM #30 tablet 04/11/21 busPIRone [Buspar] 5 mg PO BID 04/11/21 04/11/21 diazePAM [Valium] 5 mg PO BID #10 tablet 04/11/21 guaiFENesin [Guaifenesin ER] 600 mg PO BID #14 tab 04/11/21 levoFLOXacin [Levofloxacin] 750 mg PO DAILY #3 tablet 04/11/21 - PHYSICAL EXAM AT DISCHARGE General Appearance: positive: No acute distress, Alert Eyes Bilateral: positive: Normal inspection, EOMI ENT: positive: ENT inspection nml, No signs of dehydration Neck: positive: Nml inspection, No JVD Respiratory: positive: No respiratory distress, Wheezes (minimal and scattered, good air movement) Cardiovascular: positive: Regular rate & rhythm, Systolic murmur (at base, 2/6) Abdomen: positive: Non-tender, Nml bowel sounds, No distention Extremities: positive: Non-tender, No pedal edema Neurologic/Psychiatric: positive: Oriented x3 (Non-focal.) - LABS Result Diagrams: 04/09/21 12:38 04/09/21 12:38 - DIAGNOSTIC IMAGING Diagnostic Imaging Results: Final report reviewed - FOLLOW UP Follow Up: See PCP in 1-2 weeks for hospital follow-up. - TIME SPENT Time Spent in Discharge (Minutes): 30
[2021-04-11 13:00] VITALS: BP 105/66
== END 2021-04-11 13:20 | disposition home or self-care (01) ==
LOC: ED 11:39 → MS3 13:47
PROVIDERS: ADMIT Internal Medicine; ATTEND Internal Medicine
DX: J43.9 Emphysema, unspecified (principal); J18.9 Pneumonia, unspecified organism; R09.02 Hypoxemia; I35.0 Nonrheumatic aortic (valve) stenosis; Z87.891 Personal history of nicotine dependence; F41.9 Anxiety disorder, unspecified; Z20.822 Contact with and (suspected) exposure to COVID-19
CPT/HCPCS: 0202U; 36415; 71045; 71275; 80053; 81003; 83690; 83880; 84484; 85025; 87070; 87205; 93005; 93306; 94640; 94761; 96365; 96366; 99284; 99285; A9270; G0378; J7626; Q9967; 81001

== ENCOUNTER 2021-05-13 12:22 | Emergency (ER) | payer MEDICAID ==
[2021-05-13 13:03] LABS: BASOPHILS # (AUTO) 0.1 10^3/uL (0.0-0.1); BASOPHILS % (AUTO) 1.1 %; EOSINOPHILS # (AUTO) 0.4 10^3/uL (0.0-0.7); EOSINOPHILS % (AUTO) 6.6 %; HCT - HEMATOCRIT 49.1 % (42.0-52.0); LYMPHOCYTES # (AUTO) 1.1 10^3/uL (1.5-3.5); LYMPHOCYTES % (AUTO) 17.9 %; MEAN CORPUSCULAR HEMOGLOBIN 30.3 pg (27.0-31.0); MEAN CORPUSCULAR HGB CONC 32.6 g/dL (32.0-36.0); MEAN PLATELET VOLUME 10.5 fL (7.4-11.4); MONOCYTES # (AUTO) 0.7 10^3/uL (0.0-1.0); MONOCYTES % (AUTO) 10.8 %; NEUTROPHILS # (AUTO) 3.9 10^3/uL (1.5-6.6); NEUTROPHILS % (AUTO) 63.4 %; PLT - PLATELET COUNT 248 10^3/uL (130-450); RED BLOOD COUNT 5.28 10^6/uL (4.70-6.10); RED CELL DISTRIBUTION WIDTH 12.6 % (12.0-15.0); WHITE BLOOD COUNT 6.2 x10^3/uL (4.8-10.8)
--- NOTE | 2021-05-13 13:10 | XRAY Report ---
PROCEDURE: Chest 1 View X-Ray INDICATIONS: cough TECHNIQUE: One view of the chest was acquired. COMPARISON: 04/09/2021 CT angiogram of the chest FINDINGS: Surgical changes and devices: None. Lungs and pleura: No pleural effusions or pneumothorax. Groundglass airspace opacities in the lung a pices. Mediastinum: Mediastinal contours appear normal. Heart size is normal. Bones and chest wall: No suspicious bony lesions. Overlying soft tissues appear unremarkable. IMPRESSION: Hazy groundglass airspace opacities in the upper lobes. Please note that there were patchy groundglas s and consolidative reticulonodular opacities on recent CT angiogram of the chest, along with borderl ine shotty lymphadenopathy. This may represent either recurrence or persistence of the same process. A repeat CT chest could BE considered to further evaluate. Reviewed by: Theo Alejandra MD on 05/13/2021 1:09 PM PDT Approved by: Theo Alejandra MD on 05/13/2021 1:09 PM PDT Station ID: [id number]
[2021-05-13 13:21] LABS: ALBUMIN/GLOBULIN RATIO 1.1 (1.0-2.2); BILIRUBIN,TOTAL 0.6 mg/dL (0.2-1.0); CALCIUM 9.4 mg/dL (8.5-10.3); CREATININE 0.5 mg/dL (0.6-1.2); POTASSIUM 4.7 mmol/L (3.5-5.0); TOTAL PROTEIN 7.5 g/dL (6.7-8.2)
[2021-05-13] MEDS ORDERED: IPRATROPIUM/ALBUTEROL 3 ML NEB INH STA (13:38)
[2021-05-13] MEDS ORDERED: methylPREDNISolone SUCCINATE 125 MG/2 ML VIAL IVP STA (13:38)
[2021-05-13] MEDS ORDERED: SODIUM CHLORIDE 0.9% 1,000 ML IV STA (13:41)
--- NOTE | 2021-05-13 13:43 | ED Physician Documentation ---
History of Present Illness - Stated complaint Stated Complaint: SOA - Chief complaint Chief Complaint: Resp - History obtained from History obtained from: Patient, Family - History of Present Illness Pain level max: 0 Pain level now: 0 - Additonal information Additional information: Patient is a 61-year-old male, history of COPD, extensive smoking history presents to the emergency department with increased difficulty breathing over the past week. Recently admitted for a COPD exacerbation and given antibiotics in addition to steroids. He is out of his nebulizer solution. Is using albuterol inhaler with no spacer and is of antibiotics. His steroid course was only for 5 days. Has not seen his doctor. Has not seen pulmonology. Denies any known Covid exposure. Has not had his Covid vaccination. States he is having yellow sputum. He is on oxygen 2 to 3 L 20/04 at home. Nothing makes it better or worse. Review of Systems Constitutional: denies: Fever, Chills Nose: denies: Rhinorrhea / runny nose, Congestion Throat: denies: Sore throat Cardiac: denies: Chest pain / pressure, Palpitations Respiratory: reports: Dyspnea, Cough (yellow), Wheezing Skin: denies: Rash Musculoskeletal: denies: Neck pain, Back pain Neurologic: denies: Headache PD PAST MEDICAL HISTORY - Past Medical History Cardiovascular: None Respiratory: None Endocrine/Autoimmune: None GI: Other : None HEENT: None Psych: Anxiety, Panic attacks Musculoskeletal: Other Derm: Psoriasis - Past Surgical History Past Surgical History: Yes General: Other HEENT: Tonsil/Adenoidectomy, Other - Present Medications Home Medications: Ambulatory Orders Medication Instructions Recorded Confirmed Albuterol Sulf [Ventolin Hfa 2 puffs INH Q6HR PRN 04/09/21 04/09/21 Inhaler] Albuterol Sulfate [Proair Hfa 1 - 2 puffs INH Q4H PRN #1 gm 04/11/21 Inhaler] Budesonide [Pulmicort] 0.5 mg INH RTBID #60 neb 04/11/21 Doxycycline [Vibramycin] 100 mg PO BID tablet 04/11/21 Ipratropium/Albuterol [Duoneb] 3 ml INH RTQID #90 neb 04/11/21 Montelukast [Singulair] 10 mg PO QPM #30 tablet 04/11/21 busPIRone [Buspar] 5 mg PO BID 04/11/21 04/11/21 diazePAM [Valium] 5 mg PO BID #10 tablet 04/11/21 guaiFENesin [Guaifenesin ER] 600 mg PO BID #14 tab 04/11/21 levoFLOXacin [Levofloxacin] 750 mg PO DAILY #3 tablet 04/11/21 Albuterol 2.5 mg INH Q4H PRN #30 pkg 05/13/21 Albuterol Sulf [Ventolin Hfa 1 - 2 puffs INH Q4HR PRN #1 inhaler 05/13/21 Inhaler] Doxycycline Hyclate 100 mg PO BID #20 tab 05/13/21 Fluticasone/Salmeterol [Advair 1 each IH BID #1 pkg 05/13/21 250-50 Diskus] predniSONE [Deltasone] 10 mg PO [id number] #42 tab 05/13/21 - Allergies Allergies/Adverse Reactions: Allergies Allergy/AdvReac Type Severity Reaction Status Date / Time venom-honey bee Allergy Edema Verified 05/13/21 12:25 [bee venom (honey bee)] codeine AdvReac Severe stomach Verified 05/13/21 12:25 ache - Social History Does the pt smoke?: Yes Smoking Status: Former smoker Does the pt drink ETOH?: Yes Does the pt have substance abuse?: No - Immunizations Immunizations are current?: No Immunizations: TDAP >10years/unknown, Other immun not current - POLST Patient has POLST: No POLST Status: Full Code PD ED PE NORMAL - Vitals Vital signs reviewed: Yes - General General: Alert and oriented X 3, No acute distress, Well developed/nourished - HEENT HEENT: PERRL, Moist mucous membranes - Neck Neck: Supple, no meningeal sign - Cardiac Cardiac: RRR - Respiratory Respiratory: Other (Diminished breath sounds and wheezing bilaterally) - Abdomen Abdomen: Soft, Non tender, Non distended - Derm Derm: Warm and dry - Extremities Extremities: No edema, No calf tenderness / cord - Neuro Neuro: Alert and oriented X 3 - Psych Psych: Normal mood, Normal affect Results - Vitals Vitals: Vital Signs - 24 hr 05/13/21 05/13/21 05/13/21 12:25 12:59 13:29 Temperature 36.5 C Heart Rate 95 89 88 Respiratory 24 28 H 26 H Rate Blood Pressure 160/100 H 161/102 H 177/111 H O2 Saturation 90 L 96 95 05/13/21 05/13/21 05/13/21 14:00 14:10 14:30 Temperature Heart Rate 78 89 78 Respiratory 17 18 20 Rate Blood Pressure 156/93 H 157/99 H O2 Saturation 94 98 05/13/21 05/13/21 05/13/21 15:00 15:30 15:32 Temperature Heart Rate 79 72 88 Respiratory 21 20 20 Rate Blood Pressure 160/98 H 148/72 H O2 Saturation 96 94 Oxygen O2 Source Nasal cannula Oxygen Flow Rate 4 - Labs Labs: Laboratory Tests 05/13/21 05/13/21 05/13/21 12:52 12:52 12:52 WBC 6.2 RBC 5.28 Hgb 16.0 Hct 49.1 MCV 93.0 MCH 30.3 MCHC 32.6 RDW 12.6 Plt Count 248 MPV 10.5 Neut # (Auto) 3.9 Lymph # (Auto) 1.1 L [place] # (Auto) 0.7 Eos # (Auto) 0.4 Baso # (Auto) 0.1 Absolute Nucleated RBC 0.00 Nucleated RBC % 0.0 Sodium 135 Potassium 4.7 Chloride 97 L Carbon Dioxide 29 Anion Gap 9.0 BUN 7 Creatinine 0.5 L Estimated GFR (MDRD) 169 Glucose 144 H Lactic Acid 0.8 Calcium 9.4 Total Bilirubin 0.6 AST 24 ALT 19 Alkaline Phosphatase 76 Total Protein 7.5 Albumin 4.0 Globulin 3.5 Albumin/Globulin Ratio 1.1 Lipase 22 Nasal Adenovirus (PCR) Nasal B. parapertussis DNA (PCR) Nasal Coronavir 229E PCR Nasal Coronavir HKU1 PCR Nasal Coronavir NL63 PCR Nasal Coronavir OC43 PCR Nasal Enterovir/Rhinovir PCR Nasal Influenza B PCR Nasal Influenza A PCR Nasal Parainfluen 1 PCR Nasal Parainfluen 2 PCR Nasal Parainfluen 3 PCR Nasal Parainfluen 4 PCR Nasal RSV (PCR) Nasal B.pertussis DNA PCR Nasal C.pneumoniae (PCR) David Human Metapneumo PCR Nasal M.pneumoniae (PCR) Nasal SARS-CoV-2 (PCR) 05/13/21 12:53 WBC RBC Hgb Hct MCV MCH MCHC RDW Plt Count MPV Neut # (Auto) Lymph # (Auto) Atlantic # (Auto) Eos # (Auto) Baso # (Auto) Absolute Nucleated RBC Nucleated RBC % Sodium Potassium Chloride Carbon Dioxide Anion Gap BUN Creatinine Estimated GFR (MDRD) Glucose Lactic Acid Calcium Total Bilirubin AST ALT Alkaline Phosphatase Total Protein Albumin Globulin Albumin/Globulin Ratio Lipase Nasal Adenovirus (PCR) NOT DETECTED Nasal B. parapertussis DNA (PCR) NOT DETECTED Nasal Coronavir 229E PCR NOT DETECTED Nasal Coronavir HKU1 PCR NOT DETECTED Nasal Coronavir NL63 PCR NOT DETECTED Nasal Coronavir OC43 PCR NOT DETECTED Nasal Enterovir/Rhinovir PCR NOT DETECTED Nasal Influenza B PCR NOT DETECTED Nasal Influenza A PCR NOT DETECTED Nasal Parainfluen 1 PCR NOT DETECTED Nasal Parainfluen 2 PCR NOT DETECTED Nasal Parainfluen 3 PCR NOT DETECTED Nasal Parainfluen 4 PCR NOT DETECTED Nasal RSV (PCR) NOT DETECTED Nasal B.pertussis DNA PCR NOT DETECTED Nasal C.pneumoniae (PCR) NOT DETECTED David Human Metapneumo PCR NOT DETECTED Nasal M.pneumoniae (PCR) NOT DETECTED Nasal SARS-CoV-2 (PCR) NOT DETECTED - Rads (name of study) chest x-ray Radiology: Final report received, EMP read contemporaneously, See rad report PD MEDICAL DECISION MAKING - ED course Complexity details: reviewed old records, reviewed results, re-evaluated patient, considered differential, d/w patient, d/w family ED course: Chest x-ray is essentially unchanged from prior. Patient is well-appearing, nontoxic. Afebrile. He is stable on his home O2. Feels better after Solu-Medrol and breathing treatments. We will place the patient on doxycycline for COPD exacerbation, long-acting medication, Advair, and refill his albuterol as well. Patient will also go on a steroid taper. Patient will follow up closely with his doctor. Patient counseled regarding signs and symptoms for which I believe and urgent re-evaluation would be necessary. Patient with good understanding of and agreement to plan and is comfortable going home at this time This document was made in part using voice recognition software. While efforts are made to proofread this document, sound alike and grammatical errors may occur. IMPRESSION: Hazy groundglass airspace opacities in the upper lobes. Please note that there were patchy groundglass and consolidative reticulonodular opacities on recent CT angiogram of the chest, along with borderline shotty lymphadenopathy. This may represent either recurrence or persistence of the same process. A repeat CT chest could BE considered to further evaluate. Departure - Departure Disposition: 01 Home, Self Care Clinical Impression: COPD with exacerbation Condition: Good Instructions: ED COPD Flare Follow-Up: your,doctor in 1 week [Other] Prescriptions: Albuterol Sulf [Ventolin Hfa Inhaler] 1 - 2 puffs INH Q4HR PRN #1 inhaler PRN Reason: Shortness Of Air/Wheezing Fluticasone/Salmeterol [Advair 250-50 Diskus] 1 each IH BID #1 pkg Albuterol 2.5 mg INH Q4H PRN #30 pkg PRN Reason: Wheezing predniSONE [Deltasone] 10 mg PO [id number] #42 tab Doxycycline Hyclate 100 mg PO BID #20 tab Comments: Prescriptions were sent to [facility] in [place]. Please follow-up closely with your doctor for further care. Return if you worsen. Use the albuterol inhaler with a spacer. Take all steroids until gone. Please start the Advair inhaler today as well. Discharge Date/Time: 05/13/21 16:09
[2021-05-13 13:55] LABS: B. PARAPERTUSSIS- RESP PCR PAN NOT DETECTED; B. PERTUSSIS- RESP PCR PANEL NOT DETECTED; C. PNEUMONIAE- RESP PCR PANEL NOT DETECTED; CORONAVIRUS 229E-RESP PCR NOT DETECTED; CORONAVIRUS HKU1-RESP PCR NOT DETECTED; CORONAVIRUS NL63-RESP PCR NOT DETECTED; CORONAVIRUS OC43-RESP PCR NOT DETECTED; HUMAN METAPNEUMOVIRUS NOT DETECTED; INFLUENZA A- RESP PCR PANEL NOT DETECTED; INFLUENZA B - RESP PCR PANEL NOT DETECTED; M. PNEUMONIAE- RESP PCR PANEL NOT DETECTED; PARAINFLUENZA VIRUS 1 NOT DETECTED; PARAINFLUENZA VIRUS 2 NOT DETECTED; PARAINFLUENZA VIRUS 3 NOT DETECTED; PARAINFLUENZA VIRUS 4 NOT DETECTED; RHINOVIRUS/ENTEROVIRUS NOT DETECTED; RSV- RESP PCR PANEL NOT DETECTED; SARS-CoV-2 -RESP PCR PANEL NOT DETECTED
[2021-05-13] MEDS ORDERED: ALBUTEROL NEB 2.5 MG/3 ML INH STA (15:13)
[2021-05-13] MEDS ORDERED: DOXYCYCLINE 100 MG TABLET PO STA (15:14)
[2021-05-13 15:58] VITALS: BP 148/72
[2021-05-13] MEDS ORDERED: diazePAM 5 MG TABLET PO STA (16:00)
== END 2021-05-13 16:09 | disposition home or self-care (01) ==
LOC: ED 12:22
DX: J44.1 Chronic obstructive pulmonary disease with (acute) exacerbation (principal); Z99.81 Dependence on supplemental oxygen; Z20.822 Contact with and (suspected) exposure to COVID-19; Z87.891 Personal history of nicotine dependence
CPT/HCPCS: 0202U; 36415; 71045; 80053; 83605; 83690; 85025; 87040; 94640; 94664; 96374; 99284; A9270

== ENCOUNTER 2021-05-20 13:57 | Outpatient (CLI) | payer MEDICAID | END 2021-05-20 13:58 | disposition short-term general hospital (02) | LOC: EMS 13:57 | DX: R53.1 Weakness (principal); R19.5 Other fecal abnormalities; R42 Dizziness and giddiness; R53.83 Other fatigue | CPT/HCPCS: A0425; A0427; A0999 ==

== ENCOUNTER 2021-07-01 13:04 | Outpatient (CLI) | payer MEDICAID | END 2021-07-01 13:05 | disposition home or self-care (01) | LOC: COV 13:04 | PROVIDERS: ATTEND Internal Medicine Pulmonary Disease | DX: Z01.812 Encounter for preprocedural laboratory examination (principal); Z87.01 Personal history of pneumonia (recurrent); Z87.891 Personal history of nicotine dependence; Z20.822 Contact with and (suspected) exposure to COVID-19 ==

== ENCOUNTER 2023-03-19 12:50 | Day surgery (SDC) | payer MEDICAID ==
[2023-03-19] MEDS ORDERED: LACTATED RINGERS 1,000 ML IV ONE (13:05)
[2023-03-19] MEDS ORDERED: BUPIVACAINE 0.25% PF 30 ML VIAL ONE (13:23)
[2023-03-19] MEDS ORDERED: LIDOCAINE 1%-EPI 1:100000 20 ML MDV ONE (13:23)
[2023-03-19] MEDS ORDERED: MIDAZOLAM 2 MG/2 ML VIAL ONE (13:53)
[2023-03-19] MEDS ORDERED: fentaNYL 100 MCG/2 ML VIAL ONE (13:53)
--- NOTE | 2023-03-19 13:53 | ANESTHESIA ---
Pre-Anesthesia VS, & Labs - Diagnosis L upper back inclusion cyst - Procedure excision of left upper back inclusion cyst Vital Signs: Temp Pulse Resp BP Pulse Ox O2 Flow Rate 36.5 C 97 14 158/87 H 90 L 3 03/19/23 13:06 03/19/23 13:06 03/19/23 13:06 03/19/23 13:06 03/19/23 13:06 03/19/23 13:06 Height: 6 ft Weight (kg): 89 kg Body Mass Index: 26.6 BMI Classification: Overweight - NPO >8 hours Home Medications and Allergies Home Medications: Ambulatory Orders Atorvastatin [Lipitor] 1 tab PO DAILY 03/19/23 Sertraline [Zoloft] 1 tab PO DAILY 03/19/23 Tiotropium [place] [Spiriva Handihaler] 1 puffs INH PRN PRN 03/19/23 hydrOXYzine pamoate [Hydroxyzine Pamoate] 1 cap PO DAILY 03/19/23 Atorvastatin [Lipitor] 1 tab PO DAILY 03/19/23 Sertraline [Zoloft] 1 tab PO DAILY 03/19/23 Tiotropium [place] [Spiriva Handihaler] 1 puffs INH PRN PRN 03/19/23 hydrOXYzine pamoate [Hydroxyzine Pamoate] 1 cap PO DAILY 03/19/23 Allergies/Adverse Reactions: Allergies Allergy/AdvReac Type Severity Reaction Status Date / Time venom-honey bee Allergy Edema Verified 05/13/21 12:25 [bee venom (honey bee)] codeine AdvReac Severe stomach Verified 05/13/21 12:25 ache NSAIDS (Non-Steroidal AdvReac Unknown Verified 03/19/23 13:15 Anti-Inflamma Anes History & Medical History - Anesthetic History Anesthesia Complications: reports: No previous complications Family history of Anesthesia Complications: Denies Family history of Malignant Hyperthermia: Denies - Medical History Cardiovascular: reports: Murmur Pulmonary: reports: COPD, Shortness of breath, Other Gastrointestinal: reports: GERD, GI bleed, Ulcers Urinary: reports: None Neuro: reports: None Musculoskeletal: reports: Other Endocrine/Autoimmune: reports: None Skin: reports: Psoriasis Smoking Status: Former smoker Psychosocial: reports: Alcohol History of Cancer?: No - Surgical History General: reports: Cholecystectomy, EGD, Other Eyes Ears Nose Throat (EENT): reports: Tonsil/Adenoidectomy, Other Exam General: Alert, Oriented x3, Cooperative Dental: WNL Mouth Openin Fingerbreadth Neck Mobility: Normal Mallampati classification: II Thyromental Distance: 4-6 cm Respiratory: Decreased breath sounds, Rhonchi Cardiovascular: Regular rate Plan Anesthesia Type: General, MAC, Total IV Consent for Procedure(s) Verified and Reviewed: Yes Code Status: Attempt Resuscitation ASA classification: 3-Severe systemic disease Is this case an emergency?: No
--- NOTE | 2023-03-19 13:56 | HISTORY & PHYSICAL EXAMINATION ---
Chief Complaint - Chief Complaint Chief Complaint: large left back epidermal inclusion cyst with history infection History of Present Illness - History Obtained From Records Reviewed: yes History obtained from: pt Exam Limitations: none - History of Present Illness HPI Comment/Other: here for cyst excision. cyst currently not inflamed. History - Past Medical History Cardiovascular: reports: Murmur Respiratory: reports: COPD, Shortness of breath, Other Neuro: reports: None Endocrine/Autoimmune: reports: None GI: reports: GERD, GI bleed, Ulcers : reports: None HEENT: reports: Chronic vision loss Psych: reports: Anxiety, Panic attacks Musculoskeletal: reports: Other Derm: reports: Psoriasis MRSA Hx?: No - Past Surgical History General: reports: Cholecystectomy, EGD, Other HEENT: reports: Tonsil/Adenoidectomy, Other - Family & Social History Family History: Other family: Alive and Well (3 daughters, 1 is heroine addict & homeless) Living Situation: With spouse/s.o. 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 He was a 2 cigar a day smoker and quit 5 months ago. He drinks alcohol socially. - Substance History Use: Uses substance without health or social issues: NONE - POLST Patient has POLST: No POLST Status: Full Code Meds/Allgy - Home Medications Home Medications: Ambulatory Orders Medication Instructions Recorded Confirmed Albuterol Sulfate [Proair Hfa 1 - 2 puffs INH Q4H PRN #1 gm 04/11/21 03/19/23 Inhaler] Budesonide [Pulmicort] 0.5 mg INH RTBID #60 neb 04/11/21 03/19/23 Ipratropium/Albuterol [Duoneb] 3 ml INH RTQID #90 neb 04/11/21 03/19/23 Montelukast [Singulair] 10 mg PO QPM #30 tablet 04/11/21 03/19/23 Albuterol 2.5 mg INH Q4H PRN #30 pkg 05/13/21 03/19/23 Fluticasone/Salmeterol [Advair 1 each IH BID #1 pkg 05/13/21 03/19/23 250-50 Diskus] Atorvastatin [Lipitor] 1 tab PO DAILY 03/19/23 03/19/23 Sertraline [Zoloft] 1 tab PO DAILY 03/19/23 03/19/23 Tiotropium [place] [Spiriva 1 puffs INH PRN PRN 03/19/23 03/19/23 Handihaler] hydrOXYzine pamoate [Hydroxyzine 1 cap PO DAILY 03/19/23 03/19/23 Pamoate] - Allergies Allergies/Adverse Reactions: Allergies Allergy/AdvReac Type Severity Reaction Status Date / Time venom-honey bee Allergy Edema Verified 05/13/21 12:25 [bee venom (honey bee)] codeine AdvReac Severe stomach Verified 05/13/21 12:25 ache NSAIDS (Non-Steroidal AdvReac Unknown Verified 03/19/23 13:15 Anti-Inflamma Review of Systems - Other Findings Other Findings: 10 pt ros as above otherwise unremarkable Exam - Vital Signs Vital Signs: Vital Signs x48h Temp Pulse Resp BP Pulse Ox O2 Flow Rate 03/19/23 13:06 36.5 C 97 14 158/87 H 90 L 3 - Physical Exam General Appearance: positive: No acute distress, Alert Eyes Bilateral: positive: PERRL, EOMI ENT: positive: No signs of dehydration Neck: positive: No JVD, Trachea midline Respiratory: positive: No respiratory distress Cardiovascular: positive: Regular rate & rhythm Abdomen: positive: No distention Back: positive: Other (3 cm left upper back epidermal inclusion cyst) Neurologic/Psychiatric: positive: Oriented x3 Conclusion/Plan - Problem List (1) Epidermal inclusion cyst Conclusion/Plan: plan excision. parq held and consent obtained
[2023-03-19] MEDS ORDERED: PROPOFOL 200 MG/20 ML VIAL IVP ONE (13:58)
[2023-03-19] MEDS ORDERED: LIDOCAINE MPF 1%-EPI 1:200000 30 ML VIAL SUBQ ONE ×2 (14:00)
[2023-03-19] MEDS ORDERED: BUPIVACAINE 0.25% PF 30 ML VIAL SUBQ ONE ×2 (14:00)
[2023-03-19] MEDS ORDERED: LACTATED RINGERS 800 ML IV ONE (14:45)
[2023-03-19] MEDS ORDERED: HYDROcod/ACETAM 5/325 MG TABLET PO PRN (14:51)
--- NOTE | 2023-03-19 14:58 | OPERATIVE REPORT ---
Operative Report - General Procedure Date: 03/19/23 Planned Procedure: excision left upper back epidermal inclusion cyst Pre-Op Diagnosis: large back epidermal inclusion cyst Procedure Performed: excision 3.5 cm left upper back epidermal inclusion cyst 4 cm intermediate repair Post Op Diagnosis: same - Procedure Note Primary Surgeon: nilesh bergman Anesthesia Technique: Local, MAC Pathology: benign, not sent Estimated Blood Loss (mL): 2 Drain/Tube Type: Other (none) Indications: large eic with history infection Findings: as above. Complications: none - Other Other Information/Narrative: The patient was properly identified brought to the operating room and placed in right lateral decubitus position. Monitored anesthesia care and sedation was given. He was prepped and draped in a sterile fashion. Antibiotics were not given. A vertical and elliptical incision was made directly over the large left upper back epidermal inclusion cyst. The cyst was removed in its entirety with gentle retraction and sharp dissection. Hemostasis was achieved and assured with cautery. Flaps were slightly raised. Deep subcutaneous and subdermal tissue was closed with interrupted 2-0 Vicryl suture. More superficial buried interrupted subdermal 3-0 Vicryl sutures were then placed. Skin was closed with a running 4-0 Monocryl subcuticular suture. Steri-Strips and dressing were applied. Tolerated the procedure well was brought to recovery in good condition.
--- NOTE | 2023-03-19 15:34 | ANESTHESIA POST OP EVALUATION ---
Anesthesia Post Eval - Post Anesthesia Eval Vitals: Last Vital Signs Temp 36.6 C 03/19/23 15:00 Pulse 88 03/19/23 15:00 Resp 16 03/19/23 15:00 BP 139/89 H 03/19/23 15:00 Pulse Ox 95 03/19/23 15:00 O2 Flow Rate 3 03/19/23 13:06 CV Function Including HR & BP: Stable Pain Control: Satisfactory Nausea & Vomiting: Negative Mental Status: Baseline Respiratory Status: Airway Patent Hydration Status: Satisfactory Anesthesia Complications: None
[2023-03-19 15:46] VITALS: BP 135/88
== END 2023-03-19 12:51 | disposition home or self-care (01) ==
LOC: SDS 12:50
PROVIDERS: ATTEND Surgery
PROC: 0JB70ZZ Excision of Back Subcutaneous Tissue and Fascia, Open Approach (ICD-10-PCS; principal; 2023-03-19 14:15)
DX: L72.0 Epidermal cyst (principal); J44.9 Chronic obstructive pulmonary disease, unspecified; Z87.891 Personal history of nicotine dependence
CPT/HCPCS: 11404; 12032; J7120